=== PATIENT | male | born 2005 | race Hispanic/Latino ===

== ENCOUNTER 2025-03-29 10:49 | Emergency (ER) | payer SELFPAY ==
[2025-03-29] MEDS ORDERED: Ondansetron PF 4 MG/2 ML Vial ONE (11:52)
[2025-03-29 12:29] LABS: #Basophils Less than 0.03 10x3/uL (0.0-0.2); #Eosinophils Less than 0.03 10x3/uL (0.0-0.5); #Monocytes 0.31 10x3/uL (0.0-1.1); #Neutrophils 11.95 10x3/uL (1.5-8.4); %Basophils 0.2 % (0.0-2.0); %Eosinophils 0.0 % (0.0-6.0); %Lymphocytes 7.4 % (18.0-47.0); %Monocytes 2.3 % (0.0-10.0); %Neutrophils 89.8 % (40.0-75.0); Hematocrit 46.4 % (38.8-50.0); Hemoglobin 15.5 g/dL (13.5-17.5); Mean Corpuscular Hemoglobin 27.3 pg (27.0-33.0); Mean Corpuscular Volume 81.7 fL (81.2-95.1); Platelet Count 311 10x3/uL (150-450); Red Blood Cell (RBC) Count 5.68 10x6/uL (4.32-5.72); White Blood Cell (WBC) Count 13.30 10x3/uL (3.5-10.5)
[2025-03-29 12:45] LABS: ALT (SGPT) 14 U/L (Less than 45); AST (SGOT) 22 U/L (11-34); Albumin 5.3 g/dL (3.1-4.5); Alkaline Phosphatase 77 U/L (50-130); Anion Gap 18 mmol/L (10-20); BUN (Urea Nitrogen) 9 mg/dL (8.9-20.6); Bilirubin, Total 0.9 mg/dL (0.3-1.2); Calc. Creatinine Clearance 0 mL/min (70-130); Calcium 10.2 mg/dL (7.8-10.44); Carbon Dioxide 23 mmol/L (22-29); Chloride 105 mmol/L (98-107); Globulin 3.4 g/dL (2.4-3.5); Glucose 135 mg/dL (70-105); Potassium 3.0 mmol/L (3.5-5.1); Sodium 143 mmol/L (136-145)
[2025-03-29 13:02] LABS: Glucose, Urine (Dipstick) Normal (Negative); Leukocyte Negative (Negative); Protein, Urine (Dipstick) 15 mg/dl (Neg-Trace); Specific Gravity, Urine 1.020 (1.005-1.030)
[2025-03-29 13:11] LABS: Bacteria/HPF 1+ HPF (None Seen); CAUTI Indications for Culture Pelvic or flank pain; Mucous/LPF 2+ LPF (<2+); RBC/HPF 0-3 HPF (0-3); Urine Culture Reflex No No; WBC/HPF 0-3 HPF (0-3)
[2025-03-29] MEDS ORDERED: Droperidol 5 MG/2 ML VIAL ONE (13:45)
== END 2025-03-29 14:50 | disposition home or self-care (01) ==
LOC: CSHERS 10:49
DX: R11.2 Nausea with vomiting, unspecified (principal); E86.0 Dehydration; E87.6 Hypokalemia
CPT/HCPCS: 80053; 81001; 85025; 93005; 96374; 96375; J1790

== ENCOUNTER 2025-04-02 08:38 | Emergency (ER) | payer SELFPAY ==
[2025-04-02] MEDS ORDERED: Prochlorperazine 10 MG/2 ML VIAL ONE (09:16)
[2025-04-02] MEDS ORDERED: diphenhydrAMINE 50 MG/ML VIAL ONE (09:16)
[2025-04-02 09:24] LABS: #Basophils 0.04 10x3/uL (0.0-0.2); #Eosinophils 0.04 10x3/uL (0.0-0.5); #Monocytes 0.69 10x3/uL (0.0-1.1); #Neutrophils 5.83 10x3/uL (1.5-8.4); %Basophils 0.5 % (0.0-2.0); %Eosinophils 0.5 % (0.0-6.0); %Lymphocytes 24.2 % (18.0-47.0); %Monocytes 7.9 % (0.0-10.0); %Neutrophils 66.7 % (40.0-75.0); Hematocrit 48.3 % (38.8-50.0); Hemoglobin 16.3 g/dL (13.5-17.5); Mean Corpuscular Hemoglobin 27.2 pg (27.0-33.0); Mean Corpuscular Volume 80.5 fL (81.2-95.1); Platelet Count 289 10x3/uL (150-450); Red Blood Cell (RBC) Count 6.00 10x6/uL (4.32-5.72); White Blood Cell (WBC) Count 8.73 10x3/uL (3.5-10.5)
[2025-04-02 09:44] LABS: ALT (SGPT) 17 U/L (Less than 45); AST (SGOT) 24 U/L (11-34); Albumin 5.1 g/dL (3.1-4.5); Alkaline Phosphatase 68 U/L (50-130); Anion Gap 17 mmol/L (10-20); BUN (Urea Nitrogen) 11 mg/dL (8.9-20.6); Bilirubin, Total 1.3 mg/dL (0.3-1.2); Calc. Creatinine Clearance 0 mL/min (70-130); Calcium 10.1 mg/dL (7.8-10.44); Carbon Dioxide 27 mmol/L (22-29); Chloride 102 mmol/L (98-107); Globulin 3.4 g/dL (2.4-3.5); Glucose 102 mg/dL (70-105); Lipase 32 U/L (8-78); Potassium 3.0 mmol/L (3.5-5.1); Sodium 143 mmol/L (136-145)
[2025-04-02] MEDS ORDERED: Famotidine 20 MG TAB ONE (10:23)
== END 2025-04-02 11:00 | disposition home or self-care (01) ==
LOC: CSHERS 08:38
DX: A08.4 Viral intestinal infection, unspecified (principal); E86.0 Dehydration; E87.6 Hypokalemia; F17.290 Nicotine dependence, other tobacco product, uncomplicated
CPT/HCPCS: 36415; 74176; 80053; 83690; 85025; 96374; 96375; J0780; J1200